=== PATIENT | female | born 1990 | race Asian ===

== ENCOUNTER 2023-03-21 18:48 | Inpatient (IN) | payer OTHER ==
[~2023-03-21] VITALS: Ht 152.4 cm; Wt 76.4 kg
[2023-03-21] VITALS (24 sets, daily range): BP systolic 89–130; BP diastolic 50–82
[2023-03-21] MEDS ORDERED: HOME MED LIST COMPLETE! XX SCH (19:00)
[2023-03-21] MEDS ORDERED: PENICILLIN G POTASSIUM 5 MU IV 5 MU in D5W MINI-BAG PLUS 100 ML IV STA (19:16)
[2023-03-21] MEDS ORDERED: TRANEXAMIC ACID INJection 1,000 MG in NS 100 ML IV PRN (19:20)
[2023-03-21] MEDS ORDERED: OXYTOCIN DRIP 30 UNITS in IV 1 EA IV PRN ×4 (19:20)
[2023-03-21] MEDS ORDERED: METHYLERGONOVINE MALEATE 0.2MG/ML 1ML VIAL IM PRN (19:20)
[2023-03-21] MEDS ORDERED: LIDOCAINE 1% MDV 20ML VIAL INFIL PRN (19:20)
[2023-03-21] MEDS: LR 1,000 ML IV SCH (19:46)
[2023-03-21 19:58] LABS: HEMATOCRIT 34.4 % (36.0-47.0); HEMOGLOBIN 11.3 g/dl (12.0-15.5); MEAN CORPUSCULAR HEMOGLOBIN 29.6 pg (27.0-33.0); MEAN CORPUSCULAR HGB CONC 32.8 g/dl (32.0-36.5); MEAN CORPUSCULAR VOLUME 90.1 fl (80.0-96.0); PLATELET COUNT, AUTOMATED 332 10^3/uL (150-450); RED BLOOD COUNT 3.82 10^6/uL (4.00-5.40); WHITE BLOOD COUNT 11.5 10^3/uL (4.0-10.0)
[2023-03-21] MEDS ORDERED: NALOXONE INJ 0.4MG/1ML VIAL IV PRN (20:50)
[2023-03-21] MEDS ORDERED: LR 500 ML IV PRN (20:50)
[2023-03-21] MEDS ORDERED: EPIDURAL/PCA KEYS XX PRN (20:50)
[2023-03-21] MEDS ORDERED: ONDANSETRON 4MG 2ML VIAL IV PRN (20:50)
[2023-03-21] MEDS ORDERED: diphenhydrAMINE 50MG/ML VIAL IV PRN (20:50)
[2023-03-21] MEDS: FENTANYL/ROPIVACAINE/NACL BAG 100 ML EPIDURAL SCH (21:33)
[2023-03-21] MEDS: ePHEDrine SULFATE 25 MG/5 ML(5MG/ML) SYRINGE IVP PRN ×3 (23:13→23:21)
[2023-03-21] MEDS ORDERED: OXYTOCIN DRIP 30 UNITS in IV 1 EA IV SCH (23:30)
[2023-03-22] VITALS (79 sets, daily range): BP systolic 92–141; BP diastolic 48–74; O2SAT 93–97
[2023-03-22] MEDS: PEN G POT 3,000,000 UNIT/50 ML 3,000,000 UNIT in IV 1 EA IV SCH ×4 (00:06→12:22)
[2023-03-22] MEDS: LR 1,000 ML IV SCH ×3 (00:55→10:14)
[2023-03-22] MEDS: FENTANYL/ROPIVACAINE/NACL BAG 100 ML EPIDURAL SCH (07:03)
[2023-03-22] MEDS ORDERED: ACETAMINOPHEN TAB 650MG DOSE (2X325MG) PO PRN (13:35)
[2023-03-22] MEDS ORDERED: DIBUCAINE 1% OINTMENT 30GM TOP PRN (13:35)
[2023-03-22] MEDS ORDERED: ACETAMINOPHEN 500 MG TAB PO PRN (13:35)
[2023-03-22] MEDS ORDERED: IBUPROFEN 600MG TAB PO PRN (13:35)
[2023-03-22] MEDS ORDERED: RHOGAM 300MCG (1500IU) INJ IM SCH (13:35)
[2023-03-22] MEDS ORDERED: METHYLERGONOVINE MALEATE 0.2 MG TAB PO PRN (13:35)
[2023-03-22] MEDS ORDERED: DOCUSATE SODIUM 100MG CAPSULE PO PRN (13:35)
[2023-03-22] MEDS ORDERED: OXYTOCIN DRIP 30 UNITS in IV 1 EA IV ONE (13:45)
[2023-03-22] MEDS: IBUPROFEN 800 MG TAB PO PRN (14:32)
[2023-03-23 06:06] VITALS: BP 99/54; O2SAT 97
[2023-03-23] MEDS: IBUPROFEN 800 MG TAB PO PRN (09:04)
[2023-03-23] MEDS: PRENATAL VITAMINS CHEWABLE TABLET PO SCH (09:04)
[2023-03-23 10:00] VITALS: BP 110/58; O2SAT 99
[2023-03-23 14:00] VITALS: BP 100/59; O2SAT 96
[2023-03-23 18:00] VITALS: BP 107/61; O2SAT 96
[2023-03-24 06:00] VITALS: BP 117/62; O2SAT 97
[2023-03-24] MEDS: PRENATAL VITAMINS CHEWABLE TABLET PO SCH (08:32)
[2023-03-24] MEDS ORDERED: MEASLES,MUMPS,RUBELLA VACCINE INJ (MMR-II) SC.IMMUN ONE (09:00)
== END 2023-03-24 13:00 | disposition home or self-care (01) | DRG 807 ==
LOC: M LDO 18:48 → M LDI 19:08 → M OBS 03-22 15:55
PROVIDERS: ADMIT Obstetrics & Gynecology; ATTEND Obstetrics & Gynecology
PROC: 10E0XZZ Delivery of Products of Conception, External Approach (ICD-10-PCS; principal; 2023-03-22)
PROC: 0HQ9XZZ Repair Perineum Skin, External Approach (ICD-10-PCS; 2023-03-22)
PROC: 10907ZC Drainage of Amniotic Fluid, Therapeutic from Products of Conception, Via Natural or Artificial Opening (ICD-10-PCS; 2023-03-22)
DX: O99.824 Streptococcus B carrier state complicating childbirth (principal); Z37.0 Single live birth; Z3A.39 39 weeks gestation of pregnancy; O70.0 First degree perineal laceration during delivery